=== PATIENT | female | born 1960 | race Caucasian/White ===

== ENCOUNTER 2020-05-09 15:09 | Emergency (ER) | payer OTHER ==
[2020-05-09] MEDS ORDERED: NORCO 5-325 TA1 EACH PO (17:16)
== END 2020-05-09 17:28 | disposition home or self-care (01) ==
LOC: FER 15:09
DX: S63.502A Unspecified sprain of left wrist, initial encounter (principal); W19.XXXA Unspecified fall, initial encounter; Y92.009 Unspecified place in unspecified non-institutional (private) residence as the place of occurrence of the external cause
CPT/HCPCS: 73110